=== PATIENT | male | born 1995 | race Caucasian/White ===

== ENCOUNTER 2021-04-23 13:28 | Emergency (ER) | payer MEDICAID ==
[~2021-04-23] VITALS: Ht 175.3 cm; Wt 72.6 kg
[2021-04-23 13:45] VITALS: BP_SYST 126
--- NOTE | 2021-04-23 13:45 | NUR ---
pt. came in with c/o left flank and groin pain
--- NOTE | 2021-04-23 14:00 | NUR ---
pt. remains in [facility], urine specimen obtained and sent
[2021-04-23] MEDS ORDERED: KETOROLAC TROMETHAMINE 60 MG/2 ML VIAL IM ONE (14:30)
[2021-04-23 15:02] LABS: BASOPHILS % (AUTO) 0.6 % (0.0-2.0); EOSINOPHILS # (AUTO) 0.1 K/uL (0.0-0.4); EOSINOPHILS % (AUTO) 1.8 % (0.0-4.0); HEMATOCRIT 48.2 % (36-54); LYMPHOCYTES % (AUTO) 34.8 % (20.5-51.5); MEAN CORPUSCULAR HEMOGLOBIN 31 pg (27-31); MEAN CORPUSCULAR HGB CONC 35 % (32-36); MEAN CORPUSCULAR VOLUME 89 fL (79.0-98.0); MONOCYTES # (AUTO) 0.7 K/uL (0.0-1.0); MONOCYTES % (AUTO) 12.8 % (1.7-9.3); NEUTROPHILS # (AUTO) 2.9 K/uL (1.8-7.7); PLATELET COUNT (AUTO) 236 K/uL (130-430); RED BLOOD CELL COUNT(AUTO) 5.45 MIL/uL (4.2-6.2); RED CELL DISTRIBUTION WIDTH 13.1 % (9.0-15.0); WHITE BLOOD COUNT (AUTO) 5.8 K/uL (4.8-10.8)
--- NOTE | 2021-04-23 15:06 | NUR ---
went to medicate pt. in triage for pain, ptKelly francois, stated he took his own motrin
[2021-04-23 15:25] LABS: BILIRUBIN,URINE NEGATIVE (NEGATIVE); BLOOD, URINE NEGATIVE (NEGATIVE); CLARITY/URINE CLEAR (CLEAR); COLOR,URINE YELLOW (YELLOW); GLUCOSE,URINE NEGATIVE (NEGATIVE); KETONES,URINE NEGATIVE (NEGATIVE); LEUKOCYTE ESTERASE ,URINE NEGATIVE (NEGATIVE); NITRITE, URINE NEGATIVE (NEGATIVE); PH,URINE 6.5 (5.0-8.0); PROTEIN URINE TRACE (NEGATIVE); UROBILINOGEN,URINE 0.2 (0.2-1.0)
[2021-04-23 15:28] LABS: CREATININE 0.81 mg/dL (0.55-1.30); POTASSIUM 3.9 mmol/L (3.5-5.1)
[2021-04-23 15:34] LABS: ALBUMIN 4.2 g/dL (3.4-4.8); TOTAL BILIRUBIN 0.5 mg/dL (0.0-1.0)
[2021-04-23 17:09] LABS: C-REACTIVE PROTEIN QUANT 0.4 mg/dL (0-0.5)
--- NOTE | 2021-04-23 18:01 | NUR ---
DR MOORE OUT TO TRIAGE ROOM FOR RE-EVALUATION
--- NOTE | 2021-04-23 18:09 | NUR ---
Patient given written and verbal discharge instructions and verbalizes understanding. ER MD discussed with patient the results and treatment provided. Patient in stable condition. ID arm band removed. Rx of MOTRIN, NORCO given. Patient educated on pain management and to follow up with PMD. Pain Scale 0/10. Opportunity for questions provided and answered. Medication side effect fact sheet provided.
== END 2021-04-23 18:09 | disposition home or self-care (01) ==
LOC: SED 13:28
DX: R10.9 Unspecified abdominal pain (principal)
CPT/HCPCS: 36415; 74176; 76376; 80053; 81003; 82150; 83690; 85025; 86140; 99284; J1885

== ENCOUNTER 2021-06-04 18:35 | Emergency (ER) | payer MEDICAID ==
[~2021-06-04] VITALS: Ht 175.3 cm; Wt 70.3 kg
[2021-06-04 18:40] VITALS: BP_SYST 123
[2021-06-04] MEDS ORDERED: LIDOCAINE 2%, 20 ML MDV INJ ONE (20:00)
[2021-06-04 22:36] VITALS: BP_SYST 129
[2021-06-04] MEDS ORDERED: IBUPROFEN 800 MG TABLET PO ONE (22:45)
== END 2021-06-04 22:36 | disposition home or self-care (01) ==
LOC: SED 18:35
DX: L60.0 Ingrowing nail (principal)
CPT/HCPCS: 99284